=== PATIENT | male | born 1985 | race Two or more races ===

== ENCOUNTER 2016-06-20 14:10 | Emergency (ER) | payer OTHER ==
[2016-06-20] MEDS ORDERED: IOPAMIDOL 370 (76%) IV.SOLN 150 ML IV ONE (14:11)
--- NOTE | 2016-06-20 16:06 | US ---
Exam: Left lower extremity venous ultrasound COMPARISON: None INDICATION: Fall off ladder from 12 feet on 06/04/2016, left lateral thigh pain and swelling. Evaluate for DVT. Findings: The deep venous system of the left lower extremity was evaluated with color flow, compression, augmentation and spectral analysis. The deep venous system of the left lower extremity from the popliteal vein up to the common femoral vein is patent without evidence of DVT. Proximal calf veins appear patent as well. There is a large nonspecific fluid collection identified in region of swelling along the left lateral thigh extending posterior to the knee measuring up to 14.9 x 60.6 x 4.0 cm which likely reflects a hematoma given the history. IMPRESSION: No evidence of DVT in the left lower extremity. Large fluid collection in the region of pain and swelling, likely reflecting a hematoma given the history. Report was uploaded to the EMR at 1601 hours 06/20/2016.
[2016-06-20] MEDS ORDERED: DIPHENHYDRAMINE HCL 50 MG/1 ML VIAL ONE (16:33)
--- NOTE | 2016-06-20 17:14 | CT ---
Exam: CT left lower extremity with contrast COMPARISON: Ultrasound 06/20/2016 INDICATION: Fall from 12 foot from ladder onto ground on 06/04/2016, now with swelling in the mid thigh. TECHNIQUE: CT examination of the left lower extremity from the hip to the knee was performed following the administration of 125 mL Isovue-370 intravenous contrast. Patient describes sinus congestion, cough and throat swelling after the injection of contrast. FINDINGS: There is an irregularly shaped rim-enhancing fluid collection along the posterolateral aspect of the proximal left lower extremity/thigh measuring up to 20.0 x 11.4 x 6.5 cm maximum diameter. There is no internal gas. This does not extend into the muscular compartment. There is a separate similar appearing fluid collection located just inferior to the dominant one measuring up to 5.1 x 4.0 x 2.1 cm. No fracture is identified. Visualized pelvis is within normal limits. Small fat-containing left inguinal hernia is noted. IMPRESSION: 1. Two adjacent rim-enhancing fluid collections along the lateral aspect of the left thigh as detailed above. These are compatible with hematomas given the history. There is no evidence of active bleeding or superimposed infection. 2. Patient describes sinus congestion, cough and throat swelling after the injection of contrast. Correlate for clinical signs and symptoms of allergic reaction. Findings were discussed with Dr. Kapoor at 1705 hours 06/20/2016.
== END 2016-06-20 18:22 | disposition home or self-care (01) ==
LOC: EEVIPCON 14:10 → ED 14:10
DX: S70.12XA Contusion of left thigh, initial encounter (principal); W11.XXXA Fall on and from ladder, initial encounter; Y92.9 Unspecified place or not applicable
CPT/HCPCS: 73701; 99283; 96374; 93971; 99284; J1200; Q9967

== ENCOUNTER 2016-06-23 18:35 | Emergency (ER) | payer OTHER ==
[2016-06-23] MEDS ORDERED: DOXYCYCLINE HYCLATE 100 MG TABLET ONE (19:23)
[2016-06-23] MEDS ORDERED: CEFTRIAXONE SODIUM 1 G VIAL ONE (20:12)
[2016-06-23] MEDS ORDERED: OXYCODONE HCL 5 MG TABLET ONE (20:12)
== END 2016-06-23 20:29 | disposition home or self-care (01) ==
LOC: ED 18:35
DX: L02.416 Cutaneous abscess of left lower limb (principal)
CPT/HCPCS: 87070; 87205; 99283 ×2; 10060 ×2; 96372; A9270 ×2; J0696

== ENCOUNTER 2016-07-07 15:10 | Day surgery (SDC) | payer OTHER ==
[~2016-07-07 15:10] MED LIST: BUPIVACAINE 0.5% (PRES FREE) 30 ML VIAL ONE; LIDOCAINE 1% (PRES FREE) 30 ML VIAL ONE
[2016-07-07] MEDS ORDERED: CLINDAMYCIN 600 MG PREMIX 600 MG in Premix (D5W) 50 ml 1 EACH IV PRN (15:18)
[2016-07-07] MEDS ORDERED: LIDOCAINE 1% 2 ML VIAL ID PRN (15:18)
[2016-07-07] MEDS ORDERED: IV START KIT ONE (15:21)
[2016-07-07] MEDS ORDERED: CLINDAMYCIN 600 MG PREMIX 50 ML IV ONE (15:28)
[2016-07-07] MEDS ORDERED: LACTATED RINGERS 1,000 ML IV SCH ×2 (15:30→16:45)
[2016-07-07] MEDS ORDERED: FENTANYL 100 MCG/2 ML VIAL ONE ×2 (16:10→16:34)
--- NOTE | 2016-07-07 16:11 | PDOC36 ---
Provider Note Note: Patient referred to me from Dr. Heart. No changes since her note documented from earlier today. The operation and expected post-operative course were discussed at length. We discussed the risks of the operation to include, but not limited to: bleeding, pain, infection, scar, damage to surrounding structures (potentially nerves and bone), recurrence, need for additional procedures, and the risks of anesthesia ( heart attack, arrhythmia, stroke, blood clot, and ). The patient understands these risks and agrees to proceed with surgery. To OR today for I&D of infected LEFT thigh hematoma. Raheem Reinoso MD
[2016-07-07] MEDS ORDERED: METOCLOPRAMIDE HCL 5 MG/ML 2ML VIAL ONE (16:33)
[2016-07-07] MEDS ORDERED: ONDANSETRON 4 MG/2ML 2 ML VIAL ONE (16:33)
[2016-07-07] MEDS ORDERED: KETOROLAC TROMETHAMINE 30 MG/ML 1 ML VIAL ONE (16:33)
[2016-07-07] MEDS ORDERED: PROPOFOL 20 ML IV ONE (16:33)
[2016-07-07] MEDS ORDERED: MEPERIDINE 25 MG/ML SYRINGE IV PRN (16:37)
[2016-07-07] MEDS ORDERED: MORPHINE SULFATE 10 MG/ML SYRINGE ONE (16:37)
[2016-07-07] MEDS ORDERED: ONDANSETRON 4 MG/2ML 2 ML VIAL IV PRN (16:37)
[2016-07-07] MEDS ORDERED: ATROPINE SULFATE 0.4 MG/1 ML VIAL IV PRN (16:37)
[2016-07-07] MEDS ORDERED: LABETALOL HCL 5 MG/ML 20ML VIAL IV PRN (16:37)
[2016-07-07] MEDS ORDERED: MORPHINE SULFATE 4 MG/ML SYRINGE IV PRN (16:37)
[2016-07-07] MEDS ORDERED: NALOXONE HCL 0.4 MG/ML VIAL IV PRN (16:37)
[2016-07-07] MEDS ORDERED: PROMETHAZINE HCL 25 MG/ML VIAL IM PRN (16:37)
[2016-07-07] MEDS ORDERED: LIDOCAINE 1%/EPI 1:100,000 (MULTI DOSE) 30 ML VIAL ONE (16:48)
--- NOTE | 2016-07-07 17:11 | PCMON ---
OPERATIVE REPORT Date of Operation: 07 July 2016 Pre-Op Diagnosis: Infected LEFT thigh hematoma Post-Op Diagnosis: Infected LEFT thigh hematoma Operation: Incision and drainage of infected LEFT thigh hematoma Surgeon: Mahamed Reinoso MD Clinical Marketing Manager: None Pre-Operative Antibiotics: Clindamycin 600mg Specimen Sent to Lab: Wound cultures Infection Classification: 4 Estimated Blood Loss: 50mL Indication for Procedure: The patient is a 30 year old male who underwent an I& D of a symptomatic LEFT thigh hematoma last week. Over the last several days, the wound has had increasing pain and purulent drainage. The plan for today is an incision and drainage of his infected LEFT thigh hematoma. Description of Findings: The wound cavity was measured to be 7 x 4 x 2 cm. There was sero-purulent fluid that was cultured. The remainder of the wound bed appeared healthy and well vascularized. Detailed Operative Report: The patient was met in the pre-operative holding area by the operating team. All questions and concerns were addressed appropriately. The patient was taken to the operating room where general anesthesia was induced. The patients existing packing gauze was removed expelling a moderate amount of sero-purulent material. The left thigh was prepped and draped in the normal sterile fashion. Local anesthetic was injected into the proposed incision site. The skin was incised. And loculations were bluntly disrupted. The cavity measured 7 x 4 x 2 cm. There was some bleeding that was controlled with pressure, electrocautery, and a 3-0 Vicryl figure of eight suture. The wound was thoroughly irrigated and hemostasis was ensured. The remainder of the wound bed appeared beefy red and healthy. The wound was packed with a betadine soaked Kerlex. The wound was dressed with fluff gauze, and ABD pad, Kerlex gauze, and an JASMIN bandage. The patient was then awakened from anesthesia and transferred to the PACU without complication. Prior to closing, all sponge and instrument counts were correct. MAHAMED REINOSO MD
== END 2016-07-07 19:06 | disposition home or self-care (01) ==
LOC: SDC 15:10
PROVIDERS: ATTEND Surgery
PROC: 0J9P0ZZ Drainage of Left Lower Leg Subcutaneous Tissue and Fascia, Open Approach (ICD-10-PCS; principal; 2016-07-07)
DX: S71.102S Unspecified open wound, left thigh, sequela (principal); L08.9 Local infection of the skin and subcutaneous tissue, unspecified; W11.XXXA Fall on and from ladder, initial encounter; Y99.0 Civilian activity done for income or pay; Z87.891 Personal history of nicotine dependence
CPT/HCPCS: 87070; 87186; 10140; J3010 ×2; J2270; J2765; J1885; J2001; J2405; J7120